=== PATIENT | female | born 1950 | race Caucasian/White ===

== ENCOUNTER 2018-08-30 10:42 | Emergency (ER) | payer SELFPAY ==
[~2018-08-30] VITALS: Ht 165.1 cm; Wt 54.4 kg
--- NOTE | 2018-08-30 11:08 | NUR ---
ER doctor at bedside evaluating the patient, pending MD orders
[2018-08-30] MEDS ORDERED: ZOLP10TA6 PO (11:14)
[2018-08-30] MEDS ORDERED: METH2.5T PO (11:14)
[2018-08-30] MEDS ORDERED: ETAN50DI2 SQ (11:14)
[2018-08-30] MEDS ORDERED: PREG75CA PO (11:14)
[2018-08-30] MEDS ORDERED: ACET-1467 PO (11:14)
[2018-08-30] MEDS ORDERED: OMEP20CA10 PO (11:14)
[2018-08-30] MEDS ORDERED: TRAM50TA2 PO (11:14)
--- NOTE | 2018-08-30 11:20 | NUR ---
[employer] officer x2 are at bedside.
[2018-08-30 11:46] LABS: BASOPHILS # (AUTO) 0.1 K/uL (0.0-8.0); BASOPHILS % (AUTO) 1.2 % (0.0-2.0); EOSINOPHILS % (AUTO) 0.2 % (0.0-7.0); HEMATOCRIT 40.1 % (31.2-41.9); HEMOGLOBIN 13.3 g/dL (10.9-14.3); LYMPHOCYTES # (AUTO) 0.8 K/uL (20.0-40.0); LYMPHOCYTES % (AUTO) 14.5 % (20.5-51.5); MEAN CORPUSCULAR HEMOGLOBIN 32.6 uug (24.7-32.8); MEAN CORPUSCULAR HGB CONC 33 g/dL (32.3-35.6); MEAN CORPUSCULAR VOLUME 97.9 fL (75.5-95.3); MONOCYTES # (AUTO) 0.6 K/uL (2.0-10.0); NEUTROPHILS # (AUTO) 4.3 K/uL (1.8-8.9); NEUTROPHILS % (AUTO) 74.1 % (38.5-71.5); PLATELET COUNT (AUTO) 250 K/uL (179-408); RED BLOOD CELL COUNT(AUTO) 4.09 MIL/uL (3.63-4.92); WHITE BLOOD COUNT (AUTO) 5.8 K/uL (3.8-11.8)
[2018-08-30 11:50] LABS: CREATININE 0.7 mg/dL (0.6-1.3); POTASSIUM 3.3 mmol/L (3.5-5.1)
--- NOTE | 2018-08-30 11:51 | NUR ---
Patient does not wish to proceed with medical care recommended by Dr. Craig. Patient given information related to possible complications, up to and including , which could occur as a result of leaving the hospital at this time. Patient verbalizes understanding of risks involved due to leaving against medical advice. Patient has signed AMA form.
[2018-08-30 11:56] LABS: BILIRUBIN,DIRECT 0.2 mg/dL (0.0-0.2); BILIRUBIN,TOTAL 0.7 mg/dL (0.2-1.0); TOTAL PROTEIN, SERUM 7.6 g/dL (6.4-8.2)
== END 2018-08-30 11:56 | disposition left against medical advice (07) ==
LOC: ER 10:42
DX: F28 Other psychotic disorder not due to a substance or known physiological condition (principal); L40.9 Psoriasis, unspecified; F41.9 Anxiety disorder, unspecified; F32.9 Major depressive disorder, single episode, unspecified; Z79.899 Other long term (current) drug therapy
CPT/HCPCS: 36415; 70030-TC; 85025; A4663